=== PATIENT | male | born 1950 | race Caucasian/White ===

== ENCOUNTER 2023-11-11 11:34 | Day surgery (SDC) | payer MEDICARE, SELFPAY ==
[2023-11-11] VITALS (8 sets, daily range): BP systolic 109–133; BP diastolic 67–79; PULSE 67–73; RESP 10–16; TEMP 36.7–37; O2SAT 95–98; BMI 30.2
--- NOTE | 2023-11-11 08:36 | PM.HP.1 ---
History of Present Illness History of Present Illness Chief complaint: Left Hardware Removal Narrative: 73 year old male reports for painful left toe hardware. Patient underwent arthrodesis of left hammertoes last year, and the screw on the second toe is tenting against the top of the skin. Patient would like to proceed with surgical removal as soon as possible. Patient did well using CAM walker after surgery last year and requested the same type of splint. The tip of right third toe is doing well. Patient denies new pedal trauma or complaints. Patient has upcoming appointment with primary care physician for medical clearance. Patient denies n/v/f/c/sob/cp. Review of Systems Review of Systems Narrative: Negative except as mentioned in HPI. Exam Skin Other: Decreased digital hair growth, tone, temperature, and turgor of skin to left foot. Prominent screw tip at proximal dorsal left toe 2. Atrophic skin, dependent rubor, and no pedal hair to left foot. Neuro Other: Diminished protective sensations to left foot. Extrem Other: +0/5 dorsiflexion and eversion, +2/5 inversion, and +4/5 plantarflexion manual muscle strength against resistance to left foot. Moderate pain on palpation to prominent screw tip. Assessment & Plan Assessment & Plan narrative: 1. Breakdown of int fix of bones of foot and toes, subs. Patient seen and evaluated. Surgical plan: left second toe painful hard christensen removal. Risks and benefits of the procedure discussed with all questions answered to patient's satisfaction. Reviewed potential complications that may include but not limited to the following: DVT, failure to resolve all symptoms, infection, nerve injury, bleeding, recurrence, or wound. Reviewed surgical technique and general aftercare protocols. Collective decision was made to use CAM walker for the surgical limb, which was the preferred options from previous surgery. All questions answered to patient's satisfaction with no guarantees made. Patient and verbalized understanding and agreed with surgical plan. RTC for post-op.
--- NOTE | 2023-11-11 08:42 | PM.PREOP ---
Pre-operative Note Interval Note History & Physical reviewed/Exam performed by Physician: Yes Changes to H&P: No
[2023-11-11 12:49] LABS: Prothrombin Time 11.8 SECONDS (9.4-12.5)
[2023-11-11] MEDS: LACTATED RINGERS 1,000 ML 100 ML IV (12:49)
--- NOTE | 2023-11-11 13:23 | SUR.OPER ---
Supine on padded OR bed, head on pillow, arms secured on padded arm boards at <90 degrees abduction, legs uncrossed, safety belt at thigh, tape over blanket over lower legs.
[2023-11-11] MEDS: CLINDAMYCIN 900 MG/50 ML PIGGYBACK 50 MG IV (14:03)
[2023-11-11] MEDS: LIDOCAINE 1% 20 ML INJ (14:32)
[2023-11-11] MEDS: SODIUM CHLORIDE 0.9% 1,000 ML, GENTAMICIN 80 MG IRR (14:54)
--- NOTE | 2023-11-11 15:36 | PM.OP.1 ---
Operative Date/Time/Diagnoses Date of procedure: 11/11/23 Pre-op diagnosis: 1. Left second toe hardware pain Post-op diagnosis: same Procedure & Clinicians Procedure: 1. Left second toe deep harware removal Same procedure as scheduled: Yes Indications: Hardware pain and prominence Surgeon: Koko Ceballos Click Yes if Unassisted: Yes Anesthesia Type: General Operative Notes Findings: Prominent screw tenting at dorsal second toe. Closure Type: primary Estimated Blood Loss (mL): 10 Blood products transfused: none Tourniquet time (min): 0 Procedure in detail: The patient was identified and brought into operating room via gurney and was transferred onto the operating room table. The patient was in supine position for the entire case. An 18 inch ankle tourniquet was applied over well-padded surface but not inflated throughout the duration of the case. General anesthesia was administered in the operating room, and local block using 10 cc 1% lidocaine pain was administered for digital block. The left foot was then prepped and draped in the usual sterile fashion, followed by official time-out with the surgical team all in agreement. Attention was directed to the left forefoot. Fluoroscopy was used to identify and evaluate the location of screw. A small incision was made at the distal tuft, and dissection was carried out with a hemostat down to the screw head. Attempt was made to remove the screw from the tip, however, inadequate attachment of the screw auto parts delivery driver was noted likely due to stripped screw head. Decision was then made to make a percutaneous incision at the tip of the screw prominence, and needle drivers were used to remove the entire screw in entirety. Procedure sites were then irrigated using 1L saline mixed with 80 mg gentamicin solution. Incision sites were then closed with 3-0 and 4-0 nylons. Sterile surgical dressings included iodine soaked Adaptic, gauze, abdominal pad, conforming bandage, and elastic bandage wrap. A standard CAM walker was placed on the surgical limb. Patient tolerated procedure without complication. Patient was transferred to PACU with all vitals stable. Post-operative Condition: stable Disposition: same day surgery Plan for aftercare: Keep dressing clean, dry, and intact. Elevate surgical limb above heart. Ice behind knee 15 min/hr when awake. Boot immobilization all times, including rest.
--- NOTE | 2023-11-11 16:35 | SUR.PHASEII ---
Patient dressed with assistance from spouse. Left in own wheelchair and with his cane.
== END 2023-11-11 16:35 | disposition home or self-care (01) ==
PROVIDERS: Referring Provider Podiatrist Foot & Ankle Surgery; Visit Provider Podiatrist Foot & Ankle Surgery
PROC: (CPT 20680; principal; 2023-11-11 13:15)
DX: T84.21 Breakdown (mechanical) of internal fixation device of other bones (principal)
CPT/HCPCS: 20680; 36415; 85610; J1100; J2405; J2704; J3490

== ENCOUNTER → 2024-04-27 13:51 | Outpatient (CLI) | payer MEDICARE, SELFPAY | PROVIDERS: PCP Family Medicine; Visit Provider Urology | DX: R39.9 Unspecified symptoms and signs involving the genitourinary system (principal) | CPT/HCPCS: 87086 ==

== ENCOUNTER → 2024-05-06 15:50 | Outpatient (CLI) | payer MEDICARE, SELFPAY ==
--- NOTE | 2024-05-06 15:51 | DI.MRI.S_ITS ---
PROCEDURE: MR PELVIC PROSTATE PROTOCOL INDICATIONS: Elevated PSA TECHNIQUE: Coronal HASTE, axial T1 FSE with fat saturation, 3-plane nonbreath-hold T2 FSE. After the administration of contrast, dynamic axial, delayed axial and coronal VIBE or 2-D FLASH with fat saturation through the pelvis. Diffusion weighted imaging and ADC was performed. COMPARISON: None. FINDINGS: Image quality: Diffusion weighted and dynamic contrast enhanced images are diagnostic. Prostate: Gland size is 5.5 x 4.1 x 3.6 cm; ellipsoid gland volume is 42 mL. Numerous BPH nodules. No significant intrinsic T1 hyperintense foci to suggest hemorrhage. No significant areas of ADC hypointensity in the peripheral zone. No suspicious foci of the T2 hypointense signal in the transitional zone. No PI-RADS 4 or 5 observations. Genitourinary system: Bladder wall thickness is normal. Distal ureters are non distended. Bowel and peritoneum: No pathologic free pelvic fluid. Inferior colon and small bowel loops are normal in caliber. Diverticulosis. Nodes and vessels: No pelvic or inguinal adenopathy by size criteria. Small superior rectal lymph node measuring 0.6 cm, (21/34). Iliac vessels are normal in caliber. Soft tissues: Small right inguinal hernia containing trace fluid. Possible fat containing left inguinal hernia. Bones: Hypointense focus at the right iliac crest, (21/37). No suspicious enhancement seen. No T2 signal. IMPRESSION: 1. Prostatomegaly. Multiple BPH nodules. 2. No PI-RADS 4 or 5 observations. 3. No enlarged lymph nodes. 4. Hypointense focus at the right iliac crest. This could represent an area of sclerosis. Radiographs of the pelvis or CT bony pelvis are recommended for further evaluation. 5. Small right inguinal hernia containing trace fluid. Dictated by: Sixto Bermudez M.D. on 05/07/2024 at 14:07 Approved by: Sixto Bermudez M.D. on 05/07/2024 at 14:22
== END ==
LOC: MRI 15:50
PROVIDERS: PCP Family Medicine; Referring Provider Urology; Visit Provider Urology
DX: N40.2 Nodular prostate without lower urinary tract symptoms (principal); R97.20 Elevated prostate specific antigen [PSA]; K40.90 Unilateral inguinal hernia, without obstruction or gangrene, not specified as recurrent
CPT/HCPCS: 72197; A9579

== ENCOUNTER → 2024-06-30 08:54 | Outpatient (CLI) | payer MEDICARE, SELFPAY ==
--- NOTE | 2024-06-30 08:56 | EKG_ITS ---
[address] [address] Test Date: 2024-06-30 Pat Name: Juve Little Department: op Room: Gender: Male Clinic Office Assistant: [facility] : 1950 Requested By: null Order Number: [id number] Reading MD: Nico French MD Measurements Intervals [place] Rate: 66 P: 42 OR: 156 QRS: 28 QRSD: 86 T: 72 QT: 402 QTc: 421 Interpretive Statements Normal sinus rhythm Electronically Signed On 06-30-2024 11:34:58 PST by Nico French MD
[2024-06-30 10:04] LABS: Add Manual Diff / Slide Review NO; Basophils Absolute Auto 0 /uL (0-100); Basophils Percent Auto 0.7 % (0-2); Eosinophils Absolute Auto 100 /uL (0-450); Eosinophils Percent Auto 1.4 % (2-4); Hemoglobin 14.4 g/dL (13.5-17.5); Lymphocytes Absolute Auto 1000 /uL (1100-4500); Lymphocytes Percent Auto 19.4 % (25-40); Mean Corpuscular HGB Conc 33.6 % (30-36); Mean Corpuscular Hemoglobin 32.3 PG (26-34); Mean Corpuscular Volume 96.2 fL (80-100); Monocytes Absolute Auto 600 /uL (0-900); Monocytes Percent Auto 11.3 % (3-14); Neutrophils Absolute Auto 3500 /uL (1500-7000); Neutrophils Percent Auto 67.2 % (50-75); Platelet Count 221 X10^3/uL (150-400); Red Blood Cell Count 4.47 X10^6/uL (4.5-5.9); Red Cell Distribution Width 13.6 % (11.6-14.8); White Blood Cell Count 5.2 X10^3/uL (4.5-11.0)
[2024-06-30 10:22] LABS: Hemoglobin A1C% w Est Avg Glu 5.4 % (4.0-6.0)
[2024-06-30 10:39] LABS: Alanine Aminotransferase 17 IU/L (<50); Albumin Globulin Ratio 1.7 (1.0-2.8); Alkaline Phosphatase 82 U/L (38-126); Aspartate Aminotransferase 20 IU/L (17-59); BUN Creatinine Ratio 32.9 (6-22); Bilirubin Total 1.2 mg/dL (0.2-1.3); Blood Urea Nitrogen 23 mg/dL (9-20); Carbon Dioxide 28 mmol/L (22-32); Chloride 102 mmol/L (98-107); Estimated Glomerular Filt Rate > 60 mL/min (>60); Globulin 2.3 g/dL (1.7-4.1); Glucose 95 mg/dL (80-110); HEMOLYSIS < 15 (0-50); Potassium 4.7 mmol/L (3.4-5.1); Sodium 135 mmol/L (137-145); Total Protein 6.3 g/dL (6.3-8.2)
== END ==
PROVIDERS: PCP Family Medicine; Referring Provider Family Medicine; Visit Provider Family Medicine
DX: Z51.81 Encounter for therapeutic drug level monitoring (principal); Z86.73 Personal history of transient ischemic attack (TIA), and cerebral infarction without residual deficits; Z76.89 Persons encountering health services in other specified circumstances
CPT/HCPCS: 36415; 80053; 83036; 85025; 93005; 93010

== ENCOUNTER 2024-07-06 10:34 | Day surgery (SDC) | payer MEDICARE, SELFPAY ==
[2024-07-01 10:41] VITALS: BMI 29.8
[2024-07-06] VITALS (8 sets, daily range): BP systolic 118–127; BP diastolic 58–75; PULSE 71–97; RESP 12–20; TEMP 36.3–36.9; O2SAT 93–97; BMI 28.5
--- NOTE | 2024-07-06 05:41 | PM.PREOP ---
Pre-operative Note Interval Note History & Physical reviewed/Exam performed by Physician: Yes Changes to H&P: No
--- NOTE | 2024-07-06 05:44 | P.HP_ITS ---
History of Present Illness History of Present Illness Chief complaint: Right Hammertoe Repair Narrative: 73 year old male here for pre-op. Patient would like to proceed with straightening out all of his toes on the right foot. Pain is inhibiting ambulation. The left second toe is doing well. Patient has upcoming clearance with primary care physician and purchasing officer. Patient denies n/v/f/c/sob/cp. [facility] Medical History (Updated 06/25/24 @ 13:48 by Laila Madrid MD) History of CVA (cerebrovascular accident) Benign prostatic hyperplasia with lower urinary tract symptoms Family history of prostate cancer in father History of recurrent [facility] annual [facility], subsequent LILI (obstructive sleep apnea) Bilateral primary osteoarthritis of knee Carotid artery dissection Elevated PSA measurement Depression due to cerebrovascular accident (CVA) Cataract Normal colonoscopy Left-sided weakness Hypertension Hypercholesteremia CVA (cerebrovascular accident) (~2019) Surgical History Status post left foot surgery Social History marital status: number of children: 2 household members: spouse occupational status: previously employed leisure activities: exercise Smoking Status: Never smoker second hand exposure: No alcohol intake: current substance use type: does not use frequency: 3-4 times per week duration: 45-60 minutes/day Meds Home Medications and Allergies Home Medications Medication Instructions Recorded Confirmed Type acyclovir 400 mg tablet 400 mg PO BID 11/11/23 06/25/24 History aspirin 81 mg capsule 81 mg PO DAILY 11/11/23 06/25/24 History atorvastatin 40 mg tablet 40 mg PO DAILY 11/11/23 06/25/24 History citalopram 40 mg tablet 40 mg PO DAILY 11/11/23 06/25/24 History neomycin 3.5 mg/g-polymyxin B 11/11/23 06/25/24 History 10,000 unit/g-dexameth 0.1 % eye oint nystatin 100,000 unit/gram topical 1 applic topical BID 11/11/23 06/25/24 History cream tamsulosin 0.4 mg capsule 0.4 mg PO DAILY 11/11/23 06/25/24 History tizanidine 4 mg capsule 8 mg PO BID 11/11/23 06/25/24 History bupropion HCl 150 mg 24 hr tablet, 150 mg PO QAM #60 tabs 02/17/24 06/25/24 Rx extended release acetaminophen 500 mg capsule 500 mg PO Q6H PRN 04/27/24 06/25/24 History omeprazole 40 mg capsule,delayed 40 mg PO DAILY 04/27/24 06/25/24 History release ipratropium bromide 42 mcg (0.06 2 spray intranasal TID-QID PRN 05/25/24 06/25/24 Rx %) nasal spray allergy symptoms #15 mL nystatin 100,000 unit/gram topical 1 applic topical BID #30 06/16/24 06/25/24 Rx ointment applicators Allergies Allergy/AdvReac Type Severity Reaction Status Date / Time latex Allergy Intermediate Rash Verified 06/25/24 10:12 oxycodone Allergy Mild Hives Verified 06/25/24 10:12 Penicillins Allergy Mild Verified 06/25/24 10:12 Exam Extrem Other: Right foot: rigid flexor contracture toes 1-5. Assessment & Plan Assessment & Plan narrative: 1. Right hammertoes digits 2-5 2. Right osteoarthritis hallux interphalangeal joint Patient seen and evaluated. Surgical plan: right hallux IPJ fusion and hammertoes 2-5 correction. Risks and benefits of the procedure discussed with all questions answered to patient's satisfaction. Reviewed potential complications that may include but not limited to the following: DVT, failure to resolve all symptoms, infection, nerve injury, bleeding, recurrence, or wound. Reviewed surgical technique and general aftercare protocols. Collective decision was made to use CAM walker for the surgical limb, which was the preferred options from previous surgery. All questions answered to patient's satisfaction with no guarantees made. Patient and verbalized understanding and agreed with surgical plan. RTC for post-op. Time-Based Coding :: [TOTAL MINUTES] spent with patient and on the chart (including review of chart, obtaining history, exam, reviewing outside data, placing orders, documenting exam and treatment plan, and counseling patient) on [DATE].
[2024-07-06] MEDS: ACETAMINOPHEN 325 MG TABLET 975 MG PO (11:36)
[2024-07-06] MEDS: LACTATED RINGERS 1,000 ML 42 ML IV (11:36)
[2024-07-06] MEDS: CLINDAMYCIN 900 MG/50 ML PIGGYBACK 50 MG IV (13:20)
--- NOTE | 2024-07-06 13:38 | SUR.OPER ---
Supine on padded OR bed, head on pillow, arms secured on padded arm boards at <90 degrees abduction, legs uncrossed, safety belt at thigh, tape over blanket over lower legs.
[2024-07-06] MEDS: BUPIVACAINE 0.25% (PF) VIAL 30 ML INJ (13:47)
[2024-07-06] MEDS: BUPIVACAINE LIPOSOME 266 MG/20 ML VIAL INJ (17:38)
--- NOTE | 2024-07-07 00:12 | PM.OP.1 ---
Operative Date/Time/Diagnoses Date of procedure: 07/06/24 Pre-op diagnosis: 1. Right hallux osteoarthritis with mallet toe 2. Right hammertoes digits 2-5. Post-op diagnosis: same Procedure & Clinicians Procedure: 1. Right hallux interphalangeal joint arthrodesis 2. Right hammertoes double joint arthrodesis digits 2-4 3. Right hammertoe arthroplasty digit 5 Same procedure as scheduled: Yes Indications: Painful ambulation due to rigid deformities. Surgeon: Koko Ceballos Click Yes if Unassisted: Yes Anesthesia Type: General Operative Notes Findings: Consistent with diagnosis Closure Type: primary Specimen(s): none sent Estimated Blood Loss (mL): 75 Tourniquet time (min): 116 Procedure in detail: The patient was identified in the preoperative holding area and brought back to the operating room. He was placed on the operating table in supine position. General anesthesia was initiated and the time out protocol completed. The patient's name and site of surgery were confirmed. His right foot was prepped and draped in the usual aseptic manner. Local anesthetic was administered using 10 cc of 0.25% marcaine plain. 18 inch tourniquet was applied over well-padded surface at 200 mmHg for 60 minutes and then at 250 mmHg for 56 minutes after more than 15 minutes of deflation. Timeout was performed with the surgical team all in agreement. Attention was directed to lesser toes with the same procedure carried out in sequence from digits four, three, and two. Two transverse elliptical incisions were made over the interphalangeal joints on each toe. The soft tissue was reflected off of the proximal and distal interphalangeal joint articulations, and the bone saw and a curette were used to prepare each joint for fusion. A double-ended K wire was used until proper alignment was attained and verified on fluoroscopy. Following manufacture instructions, an appropriate 2.5 mm compression screw was inserted for toes four and three and 3.5 mm to toe two. Attention was then directed to hallux. A curvilinear incision was made over the interphalangeal joint. The soft tissue was reflected off of the interphalangeal joint articulation, and the bone saw and a curette were used to prep each joint for fusion. A double-ended K wire was used until proper alignment was attained and verified on fluoroscopy. Following manufacture instructions, an appropriate 4.0 mm compression screw was inserted. Attention was finally directed to fifth toe. One transverse elliptical incision was made over the proximal interphalangeal joint. The soft tissue was reflected off the articulation, and a sagittal saw was used to resect bone for decompression of deformity. Further release of flexor tendon was carried out to ensure reduction of contracture. All surgical sites were irrigated with copious saline. All procedure sites were closed from deep to superficial using 3-0 vicryl, 4-0 icryl, 3-0 nylon, and 4-0 nylon. 10 cc of Exparel was inected to forefoot. Incision sites were covered with iodine soaked Adpatic, gauze, abdominal pad, Kerlix, and Nikolay bandage. Surgical limb was placed in a CAM boot. Patient tolerated procedure and was transferred to post-anestheisa care unit with all vital signs stable. Complications: none Post-operative Condition: stable Disposition: same day surgery Plan for aftercare: Non-weight bearing to surgical limb. Elevate above heart. Ice behind knee.
== END 2024-07-06 19:17 | disposition home or self-care (01) ==
PROVIDERS: PCP Family Medicine; Referring Provider Podiatrist Foot & Ankle Surgery; Visit Provider Podiatrist Foot & Ankle Surgery
PROC: (CPT 28285; principal; 2024-07-06 12:30)
DX: M19.071 Primary osteoarthritis, right ankle and foot (principal); M20.41 Other hammer toe(s) (acquired), right foot
CPT/HCPCS: 28755; 28285 ×4; C9290; J0330; J1885; J2405; J2704; J3010; J3490

== ENCOUNTER → 2024-07-31 11:47 | Outpatient (CLI) | payer MEDICARE, SELFPAY ==
--- NOTE | 2024-07-31 11:49 | DI.RAD.S_ITS ---
PROCEDURE: XR FOOT RT MIN 3V INDICATIONS: Other hammer toe(s) (acquired), right foot TECHNIQUE: 3 views of the foot were acquired. COMPARISON: None. FINDINGS: Bones: No fractures or dislocations. No suspicious bony lesions. Generalized decreased osseous mineralization noted. Instrumented 1st - 4th interphalangeal arthrodesis. Longitudinal arch maintained Soft tissues: No tibiotalar joint effusion. Achilles tendon appears normal. IMPRESSION: Instrumented 1st through 5th 4th interphalangeal arthrodesis. Hardware failure or loosening Approved by: Raul Chung M.D. on 07/31/2024 at 18:57
== END ==
PROVIDERS: PCP Family Medicine; Referring Provider Podiatrist Foot & Ankle Surgery; Visit Provider Podiatrist Foot & Ankle Surgery
DX: M20.41 Other hammer toe(s) (acquired), right foot (principal); Z98.1 Arthrodesis status
CPT/HCPCS: 73630

== ENCOUNTER → 2024-09-02 11:48 | Outpatient (CLI) | payer MEDICARE, SELFPAY ==
--- NOTE | 2024-09-02 11:50 | DI.RAD.S_ITS ---
PROCEDURE: XR FOOT RT MIN 3V INDICATIONS: FOOT PAIN TECHNIQUE: 3 views of the foot were acquired. COMPARISON: [facility], , XR FOOT RT MIN 3V, 07/31/2024, 11:51. FINDINGS: Status post 1st-4th digit PIP/DIP joint arthrodesis with single headless compression screws. No hardware complication. Scattered midfoot osteoarthritis. Diffuse osseous demineralization. No other acute fracture or dislocation. Pes cavus alignment on the nonweightbearing views. Achilles calcaneal enthesopathy. IMPRESSION: Status post 1st-4th PIP/DIP joint arthrodesis without hardware complication. Dictated by: Jose Lagos M.D. on 09/02/2024 at 16:54 Approved by: Jose Lagos M.D. on 09/02/2024 at 16:56
== END ==
LOC: RAD 11:49
PROVIDERS: PCP Family Medicine; Referring Provider Podiatrist Foot & Ankle Surgery; Visit Provider Podiatrist Foot & Ankle Surgery
DX: Z47.89 Encounter for other orthopedic aftercare (principal); M19.071 Primary osteoarthritis, right ankle and foot; M76.61 Achilles tendinitis, right leg; Z98.1 Arthrodesis status
CPT/HCPCS: 36415; 73630; 84153; 84154

== ENCOUNTER → 2024-09-02 11:51 | Outpatient (CLI) | payer MEDICARE, SELFPAY ==
[2024-09-04 07:08] LABS: PSA Free % 15.5 % (.); PSA, Total 4.9 ng/mL (0.0-4.0)
== END ==
LOC: LAB 11:52
PROVIDERS: PCP Family Medicine; Referring Provider Urology; Visit Provider Urology
DX: N40.1 Benign prostatic hyperplasia with lower urinary tract symptoms (principal); R39.12 Poor urinary stream; Z80.42 Family history of malignant neoplasm of prostate; R97.20 Elevated prostate specific antigen [PSA]
CPT/HCPCS: 36415; 84153; 84154

== ENCOUNTER → 2024-09-22 12:18 | Outpatient (CLI) | payer MEDICARE, SELFPAY ==
--- NOTE | 2024-09-22 12:21 | DI.RAD.S_ITS ---
PROCEDURE: XR FOOT RT MIN 3V INDICATIONS: FOOT PAIN TECHNIQUE: 3 views of the foot were acquired. COMPARISON: [facility], CR, XR FOOT RT MIN 3V, 09/02/2024, 11:53. FINDINGS: Bones: No fractures or dislocations. No suspicious bony lesions. First, 2nd, 3rd and 4th digit interphalangeal arthrodesis hardware is stable. No lucencies at the bone-hardware interface. Small calcaneal bone spurs. Mild 1st MTP joint and midfoot osteoarthritis. Soft tissues: No tibiotalar joint effusion. Achilles tendon appears normal. IMPRESSION: No acute bony abnormality. Stable 1st-4th digit arthrodesis changes. Dictated by: Frannie Elizondo MD, PhD on 09/22/2024 at 12:43 Approved by: Frannie Elizondo MD, PhD on 09/22/2024 at 12:44
== END ==
PROVIDERS: PCP Family Medicine; Referring Provider Podiatrist Foot & Ankle Surgery; Visit Provider Podiatrist Foot & Ankle Surgery
DX: Z47.89 Encounter for other orthopedic aftercare (principal); M79.672 Pain in left foot; M77.31 Calcaneal spur, right foot; Z98.1 Arthrodesis status
CPT/HCPCS: 73630

== ENCOUNTER → 2025-01-01 12:16 | Outpatient (CLI) | payer MEDICARE, SELFPAY ==
[2025-01-02 23:08] LABS: PSA Free % 15.8 % (.)
== END ==
PROVIDERS: PCP Family Medicine; Referring Provider Urology; Visit Provider Urology
DX: R97.20 Elevated prostate specific antigen [PSA] (principal)
CPT/HCPCS: 36415; 84153; 84154

== ENCOUNTER → 2025-03-26 15:37 | Outpatient (CLI) | payer MEDICARE, SELFPAY ==
[2025-03-26 18:41] LABS: Hemoglobin A1C% w Est Avg Glu 5.3 % (4.0-6.0)
[2025-03-26 21:27] LABS: Alanine Aminotransferase 19 IU/L (<50); Albumin 4.4 g/dL (3.5-5.0); Albumin Globulin Ratio 1.7 (1.0-2.8); Alkaline Phosphatase 83 U/L (38-126); Blood Urea Nitrogen 20 mg/dL (9-20); Calcium 8.9 mg/dL (8.4-10.2); Carbon Dioxide 29 mmol/L (22-32); Chloride 101 mmol/L (98-107); Estimated Glomerular Filt Rate > 60 mL/min (>60); Globulin 2.6 g/dL (1.7-4.1); Glucose 91 mg/dL (70-99); HEMOLYSIS < 15 (0-50); Potassium 4.8 mmol/L (3.4-5.1); Sodium 137 mmol/L (137-145); Total Protein 7.0 g/dL (6.3-8.2)
[2025-03-27 17:22] LABS: Hep C Virus Ab w/Reflex Quant NEGATIVE s/c (NEGATIVE)
== END ==
PROVIDERS: PCP Family Medicine; Referring Provider Family Medicine; Visit Provider Family Medicine
DX: Z00.00 Encounter for general adult medical examination without abnormal findings (principal); Z13.1 Encounter for screening for diabetes mellitus; Z86.73 Personal history of transient ischemic attack (TIA), and cerebral infarction without residual deficits; I77.71 Dissection of carotid artery
CPT/HCPCS: 36415; 80053; 83036; 86803

== ENCOUNTER → 2025-06-07 13:53 | Outpatient (CLI) | payer MEDICARE, SELFPAY ==
--- NOTE | 2025-06-07 13:55 | DI.RAD.S_ITS ---
PROCEDURE: XR TOE RT MIN 2V INDICATIONS: ULCER TECHNIQUE: 3 views of the 3rd toe(s) acquired. COMPARISON: None. FINDINGS: Bones: Arthrodesis screws through the 1st through 4th phalanges. There is mild lucency associated with the 3rd digit screw at the distal tip. Soft tissues: No suspicious soft tissue densities. IMPRESSION: Lucency associated with the 3rd digit screw at the distal tip. Given the adjacent ulcer, infection is not excluded. Consider bone scan. Dictated by: Miles Erazo M.D. on 06/07/2025 at 16:13 Approved by: Miles Erazo M.D. on 06/07/2025 at 16:16
== END ==
PROVIDERS: PCP Family Medicine; Referring Provider Podiatrist Foot & Ankle Surgery; Visit Provider Podiatrist Foot & Ankle Surgery
DX: L97.516 Non-pressure chronic ulcer of other part of right foot with bone involvement without evidence of necrosis (principal); Z98.1 Arthrodesis status
CPT/HCPCS: 73660

== ENCOUNTER → 2025-06-18 10:15 | Outpatient (CLI) | payer MEDICARE, SELFPAY ==
--- NOTE | 2025-06-18 10:16 | DI.RAD.S_ITS ---
PROCEDURE: XR HIP W PEL IF DONE LT 2V INDICATIONS: L hip pain, assess for OA TECHNIQUE: AP pelvis with lateral view(s) of the left hip(s). COMPARISON: [facility], , MR PELVIC PROSTATE PROTOCOL, 05/06/2024, 16:27. FINDINGS: Bones: Moderate bilateral joint space narrowing, mild sclerosis, small superior acetabular osteophyte formation, and osseous demineralization. Round osseous density along superior right iliac, unchanged and has the appearance of a bone island. No fractures or dislocations. Pelvic ring appears intact. No suspicious bony lesions. No a vascular necrosis of the left femoral head. Soft tissues: The visualized bowel gas pattern is normal. No suspicious soft tissue calcifications. IMPRESSION: Moderate bilateral hip DJD. Dictated by: Hanane ENRIQUEZ Interpreted: Sixto Bermudez MD on 06/18/2025 at 11:08 Transcribed by: RAMESH on 06/18/2025 at 11:11 Approved by: Sixto Bermudez M.D. on 06/18/2025 at 14:07
== END ==
PROVIDERS: PCP Family Medicine; Referring Provider Family Medicine; Visit Provider Family Medicine
DX: M16.0 Bilateral primary osteoarthritis of hip (principal)
CPT/HCPCS: 73502

== ENCOUNTER → 2025-07-12 10:00 | Outpatient (CLI) | payer MEDICARE, SELFPAY ==
[2025-07-12 11:10] LABS: Add Manual Diff / Slide Review NO; Hematocrit 43.1 % (41-53); Hemoglobin 14.8 g/dL (13.5-17.5); Lymphocytes Absolute Auto 900 /uL (1100-4500); Mean Corpuscular HGB Conc 34.2 % (30-36); Mean Corpuscular Hemoglobin 32.3 PG (26-34); Mean Corpuscular Volume 94.4 fL (80-100); Platelet Count 197 X10^3/uL (150-400)
[2025-07-12 11:29] LABS: INR 1.1 (0.9-1.3); Prothrombin Time 12.1 SECONDS (9.4-12.5)
[2025-07-12 11:48] LABS: Alanine Aminotransferase 18 IU/L (<50); Albumin 4.3 g/dL (3.5-5.0); Albumin Globulin Ratio 1.7 (1.0-2.8); Alkaline Phosphatase 83 U/L (38-126); Blood Urea Nitrogen 18 mg/dL (9-20); Calcium 9.1 mg/dL (8.4-10.2); Carbon Dioxide 29 mmol/L (22-32); Chloride 100 mmol/L (98-107); Estimated Glomerular Filt Rate > 60 mL/min (>60); Globulin 2.5 g/dL (1.7-4.1); Glucose 102 mg/dL (70-99); HEMOLYSIS < 15 (0-50); Potassium 4.2 mmol/L (3.4-5.1); Sodium 138 mmol/L (137-145); Total Protein 6.8 g/dL (6.3-8.2)
== END ==
PROVIDERS: PCP Family Medicine; Referring Provider Urology; Visit Provider Urology
DX: Z01.812 Encounter for preprocedural laboratory examination (principal); R97.20 Elevated prostate specific antigen [PSA]; N40.1 Benign prostatic hyperplasia with lower urinary tract symptoms; R39.12 Poor urinary stream
CPT/HCPCS: 36415; 80053; 84153; 84154; 85025; 85610

== ENCOUNTER 2025-07-29 06:11 | Day surgery (SDC) | payer MEDICARE, SELFPAY ==
[2025-07-26 12:10] VITALS: BMI 28.7
[2025-07-29] VITALS (7 sets, daily range): BP systolic 107–132; BP diastolic 58–82; PULSE 62–82; RESP 16–31; TEMP 36.5–36.6; O2SAT 96–100
--- NOTE | 2025-07-29 05:44 | PM.HP.1 ---
History of Present Illness History of Present Illness Chief complaint: Right Toe Amputation Narrative: 74 year old male here for pre-op. He discovered a scab on the right pinky toe recently and is unsure about the onset. He is otherwise ready to proceed with surgery. He does experience intermittent pain to the right third toe. No new concerns noted since last visit. Patient denies n/v/f/c/sob/cp. 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) Cataract Normal colonoscopy Left-sided weakness Hypertension Hypercholesteremia CVA (cerebrovascular accident) (~2019) Surgical History (Updated 07/26/25 @ 13:16 by Yasmin Ross RN) S/P foot surgery, right (07/06/24) History of bilateral cataract extraction Status post left foot surgery Social History marital status: number of children: 2 household members: spouse occupational status: previously employed leisure activities: exercise second hand exposure: No alcohol intake: current substance use type: does not use frequency: 3-4 times per week duration: 45-60 minutes/day Meds Home Medications and Allergies Home Medications ?Medication ?Instructions ?Recorded ?Confirmed ?Type aspirin 81 mg capsule 81 mg PO DAILY 11/11/23 07/21/25 History nystatin 100,000 unit/gram topical 1 applic topical BID 11/11/23 07/21/25 History cream acetaminophen 500 mg capsule 500 mg PO Q6H 04/27/24 07/21/25 History nystatin 100,000 unit/gram topical 1 applic topical BID #90 12/03/24 07/21/25 Rx ointment applicators Disabled Parking #1 ea 03/26/25 07/21/25 Rx acyclovir 400 mg tablet 400 mg PO BID #180 tabs 03/31/25 07/21/25 Rx atorvastatin 40 mg tablet 40 mg PO DAILY #90 tabs 03/31/25 07/21/25 Rx bupropion HCl 150 mg 24 hr tablet, 150 mg PO QAM #90 tabs 03/31/25 07/21/25 Rx extended release citalopram 40 mg tablet 40 mg PO DAILY #90 tabs 03/31/25 07/21/25 Rx ipratropium bromide 42 mcg (0.06 2 spray intranasal TID-QID PRN for 03/31/25 07/21/25 Rx %) nasal spray allergies #15 mL tamsulosin 0.4 mg capsule 0.4 mg PO DAILY #90 caps 03/31/25 07/21/25 Rx tizanidine 4 mg capsule 8 mg (2 x 4 mg) PO BID #180 caps 03/31/25 07/21/25 Rx lidocaine 5 % topical patch 1 patch topical DAILY #30 ea 06/18/25 07/21/25 Rx Allergies Allergy/AdvReac Type Severity Reaction Status Date / Time latex Allergy Intermediate Rash Verified 07/21/25 16:37 oxycodone Allergy Mild Hives Verified 07/21/25 16:37 Penicillins Allergy Mild Verified 07/21/25 16:37 Exam Extrem Other: Right third toe: full-thickness wound that tunnels down and probes to bone and hardware with mild localized SSTI. Assessment & Plan Assessment & Plan narrative: 1. 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 Surgical plan: right third toe hardware removal with partial amputation. Risks and benefits of the procedure discussed with all questions answered to patient's satisfaction. Reviewed potential complications that may include but not limited to the following: DVT, failure to resolve all symptoms, infection, nerve injury, bleeding, recurrence, or wound. Reviewed surgical technique and general aftercare protocols. All questions answered to patient's satisfaction with no guarantees made. Patient verbalized understanding and agreed with surgical plan. RTC for post-op. Time-Based Coding :: [TOTAL MINUTES] spent with patient and on the chart (including review of chart, obtaining history, exam, reviewing outside data, placing orders, documenting exam and treatment plan, and counseling patient) on [DATE].
[2025-07-29] MEDS: GABAPENTIN 300 MG CAPSULE PO (07:24)
[2025-07-29] MEDS: MELOXICAM 7.5 MG TABLET 15 MG PO (07:24)
[2025-07-29] MEDS: ACETAMINOPHEN 325 MG TABLET 975 MG PO (07:24)
[2025-07-29] MEDS: LACTATED RINGERS 1,000 ML 42 ML IV (07:25)
[2025-07-29] MEDS: ONDANSETRON 4 MG/2 ML INJ IV (07:34)
--- NOTE | 2025-07-29 07:39 | PM.PREOP ---
Pre-operative Note Interval Note History & Physical reviewed/Exam performed by Physician: Yes Changes to H&P: No
[2025-07-29] MEDS: LIDOCAINE 1% 20 ML INJ (08:00)
--- NOTE | 2025-07-29 08:17 | SUR.OPER ---
Supine on padded OR bed, head on pillow, arms secured on padded arm boards at <90 degrees abduction, legs uncrossed, safety belt at thigh, tape over blanket over lower non-operative leg. Hip bump to operative side, blankets under lower leg and knee per surgeon direction. Final position approved by surgeon prior to start of procedure.
[2025-07-29] MEDS: VANCOMYCIN 1,000 MG VIAL 1 MG INTRA-ARTI (08:35)
[2025-07-29] MEDS: SODIUM CHLORIDE IRRIG SOLUTION 3,000 ML, GENTAMICIN 240 MG IRR (08:36)
--- NOTE | 2025-07-30 18:12 | P.OP_ITS ---
Operative Date/Time/Diagnoses Date of procedure: 07/29/25 Time of procedure: 07:45 Pre-op diagnosis: 1. Right third toe hardware pain and infection Post-op diagnosis: same Procedure & Clinicians Procedure: 1. Right third toe hardware removal with partial amputation Same procedure(s) as scheduled: Yes Indications: Failed oral antibiotics with recurring ulcer and continuos pain Surgeon: Koko Ceballos Assisted?: No Anesthesia Type: General and Local Operative Notes Findings: Exposed screw head with erosion of bone at distal tuft Closure Type: primary Specimen(s): other (Bone and hardware to microbiology before irrigation and bone to microbiology after irrigation) Applied: none Estimated Blood Loss (mL): 10 Blood products transfused: none Tourniquet time (min): 14 Procedure in detail: The patient was identified in the preoperative holding area and brought back to the operating room. He was placed on the operating table in supine position. General anesthesia was initiated and the time out protocol completed. The patient's name and site of surgery were confirmed. His right foot was prepped and draped in the usual aseptic manner. Local anesthetic was administered using 5 cc of 1% lidocaine plain. An 18 inch tourniquet was applied over well-padded surface at 250 mmHg. Timeout was performed with the surgical team all in agreement. Attention was directed to right third toe. A focal wound was noted at the distal aspect. A fish-mouth incision was carried out using a #15 scalpel from skin down to the bone. The exposed screw head was identified with evidence of erosion to its surrounding bone. A designated drop hammer pile driver operator was used to remove the screw in entirety, which was sent to microbiology for culture and sensitivity. A rongeur was used to remove the distal tuft and also sent to microbiology for culture and sensitivity. The open surgical site was irrigated using 3 liters of saline mixed with gentamicin. All outer gloves were removed and switched to new sterile gloves, and all previously used instruments were set aside. A sagittal saw was used to resect a sliver of the distal stump, which was sent to microbiology for culture and sensitivity as proximal margin. Tourniquet was released for a total of 14 minutes. 1 gram of vancomycin powder was added to the surgical site and closed uisng a 4-0 nylon. 5 cc of Exparel was administered to third ray. Incision site was covered with iodine soaked Adpatic, gauze, abdominal pad, Kerlix, and Nikolay bandage. Surgical limb was placed in a surgical shoe. Patient tolerated procedure and was transferred to post-anesthesia care unit with all vital signs stable. Complications: none Post-operative Condition: stable Disposition: same day surgery Plan for aftercare: NWB to surgical limb. Keep dressing clean, dry, and intact. Elevate above heart on pillows. Ice behind knee intermittently
== END 2025-07-29 10:57 | disposition home or self-care (01) ==
PROVIDERS: PCP Family Medicine; Referring Provider Podiatrist Foot & Ankle Surgery; Visit Provider Podiatrist Foot & Ankle Surgery
PROC: (CPT 28124; principal; 2025-07-29 07:45)
DX: T84.7XXD Infection and inflammatory reaction due to other internal orthopedic prosthetic devices, implants and grafts, subsequent encounter (principal); B95.7 Other staphylococcus as the cause of diseases classified elsewhere
CPT/HCPCS: 28124; 20680; 87070; 87075; 87077; 87186; 87205; J0666; J0689; J1100; J1885; J2405; J2704; J3010; J3373; J7120